=== PATIENT | female | born 1970 | race Caucasian/White ===

== ENCOUNTER → 2019-03-03 | Outpatient (CLI) | payer OTHER, SELFPAY ==
--- NOTE | 2019-03-03 10:28 | BI_ITS ---
MAMMOGRAPHY - BILATERAL DIAGNOSTIC REASON FOR EXAM: Female, 49 years old. History of bilateral breast cysts. No positive family history. PERTINENT HISTORY: Non-contributory. TECHNIQUE: Digital examination. Mediolateral oblique (MLO) and craniocaudad (CC) views of both breasts were obtained. CAD: CAD was performed on this study. COMPARISON: March 09, 2017. FINDINGS: Breast Composition: The breasts are heterogeneously dense, which may obscure small masses. There are multiple, hyperdense, rounded and ovoid masses within the right breast mid zone upper outer quadrant and upper inner quadrant ranging in size from 1 cm to 1.8 cm. There are multiple left breast subareolar and left upper outer quadrant masses ranging in size from 1.9 cm to 3.5 cm. The margins of the bilateral previously described masses appear well circumscribed except where they are obscured by adjacent fibroglandular tissue and most likely represent cysts. Additionally, some of these foci have increased in size and some have decreased in size over the comparison interval and some are new bilaterally. There are no suspicious clustered microcalcifications. BI/DIAG MAMM W/CAD, BILAT IMPRESSION: Multiple abnormal findings/masses bilaterally as above. Although these findings probably represent cysts, characterization with sonography is recommended. ASSESSMENT CATEGORY: BIRADS Category 0: Incomplete. Need additional imaging evaluation. A letter regarding these results will be sent to the patient by the facility within 30 days. FOLLOW UP RECOMMENDATION: Ultrasound Recommended. (I) Approximately 10% of breast cancers are not detected by mammography. A normal mammogram should not delay biopsy of a clinically suspicious abnormality. Electronically Signed: Christophe Gamino MD at 16:12 EDT , Service support ,
--- NOTE | 2019-03-03 10:29 | US_ITS ---
STUDY: ULTRASOUND BREAST - RIGHT REASON FOR EXAM: Female, 49 years old. Abnormal screening mammogram. TECHNIQUE: Axial and longitudinal images of the RIGHT breast were performed with a high resolution ultrasound transducer. COMPARISON: Comparison is made with prior mammogram done earlier in the day as well as prior ultrasound of the breasts dated April 13, 2015 and July 14, 2014. FINDINGS: RIGHT Breast: There is a 1.5 cm x 2.4 cm x 1 cm cyst at the 10:00 position breast at 4 cm from nipple. This also evidence of a 1.3 cm x 1.5 cm x 1 cm well-defined hypoechoic nodule at the 12:00 position of the breast at 4 cm from the nipple. This nodule was previously biopsied. This is essentially unchanged. There is also evidence of an 8 mm x 8 mm x 7 mm solid/cystic nodule at the 10:00 position breast at 6 cm from the nipple. IMPRESSION: 1.5 cm x 2.4 cm x 1 cm cyst at the 10:00 position of the breast at 4 cm from the nipple. Stable nodule at the 12:00 position breast at 4 cm from nipple. ASSESSMENT CATEGORY: BIRADS Category 2: Benign. A letter regarding these results will be sent to the patient by the facility within 30 days. Electronically Signed: Angelito Robles, at 12:54 EDT , Service support , STUDY: ULTRASOUND BREAST - LEFT REASON FOR EXAM: Female, 49 years old. Abnormal screening mammogram. TECHNIQUE: Axial and longitudinal images of the LEFT breast were performed with a high resolution ultrasound transducer. COMPARISON: Comparison is made with prior mammogram done earlier in the day as well as prior ultrasound of the left breast dated April 13, 2015. FINDINGS: LEFT Breast: Multiple cysts are seen. The largest measures 3.5 cm x 3.7 cm x 1.3 cm. This is at the 12:00 position of the breast at 3 cm from nipple. US/Breast Complete Bilateral IMPRESSION: Multiple cysts. ASSESSMENT CATEGORY: BIRADS Category 2: Benign. A letter regarding these results will be sent to the patient by the facility within 30 days. Electronically Signed: Angelito Robles, at 12:55 EDT , Service support ,
== END | disposition home or self-care (01) ==
PROVIDERS: Family Provider Internal Medicine; PCP Internal Medicine; Referring Provider Obstetrics & Gynecology; Visit Provider Obstetrics & Gynecology
DX: N63.20 Unspecified lump in the left breast, unspecified quadrant (principal)
CPT/HCPCS: 76641; 77066

== ENCOUNTER → 2019-09-14 16:55 | Outpatient (CLI) | payer OTHER, SELFPAY ==
--- NOTE | 2019-09-14 15:30 | FLU_PTH ---
PATIENT: COLUMBA MEDEROS LOC: [facility] U#:[id number] AGE/SX: 55/F ROOM: RE09/14/[address]: Dr. Michelle Stout DO : 1970 BED: DIS: SPEC #: [id number] RECD: 09/14/19 16:52 STATUS: DONATO GRIFFIN #: [id number] DARCIE: 09/14/19 15:[address]: Gabby Gray DEPT: CYTOLOGY RECD BY: Rufus Lange ENTERED: 09/15/19 09:46 SP TYPE: Fluid OTHR DR: Dr. Michelle tSout DO Tissues: Right breast, NOS Procedures: Special Stain Group II Surgery Specimen Level IV Cytospin Fluid HEADER OPERATION: Ultrasound guided, right breast cyst aspiration PRE-OP DIAGNOSIS: Right breast cyst TISSUE SUBMITTED: Right breast cyst fluid for cytology DIAGNOSIS CYTOLOGY Right breast cyst fluid for cytology, ultrasound-guided FNA (cytospin and cell block): Consistent with fibrocystic changes. Negative for malignant cells. See cytology study and comment. SJ:rg 09/16/19 COMMENT Correlation with clinical, radiologic findings and appropriate follow up are necessary. CYTOLOGY STUDY Slides are reviewed. The specimen predominantly consists of macrophages and a few clusters of benign ductal cells. CYTOLOGY GROSS Received is 40 ml of cloudy brown fluid labeled with the patient's name and and designated per the requisition as right breast cyst fluid. Submitted for cytology preparation including cell block. /CC:cc 09/15/19 TC:5 CPT: 08029, 49675
== END ==
PROVIDERS: Family Provider Internal Medicine; PCP Internal Medicine; Referring Provider Internal Medicine; Visit Provider Internal Medicine
DX: N60.01 Solitary cyst of right breast (principal)
CPT/HCPCS: 88108; 88305; 88313

== ENCOUNTER → 2019-10-07 14:01 | Outpatient (CLI) | payer OTHER, SELFPAY ==
[2019-10-07 09:08] VITALS: BMI 31.5
== END ==
PROVIDERS: Family Provider Internal Medicine; PCP Internal Medicine; Referring Provider Physician Assistant Surgical; Visit Provider Physician Assistant Surgical
DX: J31.2 Chronic pharyngitis (principal)
CPT/HCPCS: 87070

== ENCOUNTER → 2021-08-20 17:20 | Outpatient (CLI) | payer OTHER, SELFPAY ==
--- NOTE | 2021-08-20 17:06 | BI_ITS ---
MAMMOGRAPHY - BILATERAL SCREENING REASON FOR EXAM: Female, 51 years old. Routine annual screening examination. PERTINENT HISTORY: Non-contributory. TECHNIQUE: Digital bilateral breast ayan (3D mammographic acquisition) in the CC and MLO projections. 2-D mediolateral oblique (MLO) and craniocaudad (CC) views of both breasts were obtained. CAD: Full Field Digital Mammography with Computer Added Detection was performed. COMPARISON: Comparison is made with prior study of 03/03/2019 and 04/13/2015. FINDINGS: Breast Composition: The breasts are extremely dense, which lowers the sensitivity of mammography. Once again, there are multiple bilateral well-defined nodules. These have decreased in size as compared to prior study especially on the left side. A tissue clip marker is seen in the upper midportion of the right breast. A second tissue clip marker is seen in the retroareolar region of the right breast. No other significant abnormalities are identified. BI/SCRN MAMM (CAD)W/AYAN BILAT IMPRESSION: Bilateral well-defined breast nodules. These have decreased in size as compared to prior study. Yearly follow-up mammogram recommended. (A) ASSESSMENT CATEGORY: BIRADS Category 2: Benign. A letter regarding these results will be sent to the patient by the facility within 30 days. Approximately 10% of breast cancers are not detected by mammography. A normal mammogram should not delay biopsy of a clinically suspicious abnormality. [id number] Electronically Signed: Angelito Robles MD at 9:01 EDT , Service support ,
== END ==
PROVIDERS: PCP Internal Medicine
DX: Z12.31 Encounter for screening mammogram for malignant neoplasm of breast (principal)
CPT/HCPCS: 77063; 77067

== ENCOUNTER → 2022-09-04 | Outpatient (CLI) | payer OTHER, SELFPAY ==
--- NOTE | 2022-09-04 16:37 | BI_ITS ---
MAMMOGRAPHY - BILATERAL SCREENING REASON FOR EXAM: Female, 52 years old. Routine annual screening examination. PERTINENT HISTORY: Non-contributory. History of bilateral breast cysts and prior aspirations. TECHNIQUE: Digital bilateral breast ayan (3D mammographic acquisition) in the CC and MLO projections. 2-D mediolateral oblique (MLO) and craniocaudad (CC) views of both breasts were obtained. CAD: Full Field Digital Mammography with Computer Added Detection was performed. COMPARISON: Comparison is made with prior study dated 08/20/2021 and 03/03/2019. FINDINGS: Breast Composition: The breasts are extremely dense, which lowers the sensitivity of mammography. Once again, there are multiple bilateral well-defined nodules in both breasts in keeping with the patient''s history of prior cysts. The previously seen cyst in the upper central portion of the left breast has increased in size. It presently measures 3.2 cm x 3.2 cm. A tissue clip marker is once again seen in the upper midportion of the right breast. A second tissue clip marker is seen in the retroareolar region of the right breast. No other significant abnormalities are identified. BI/SCRN MAMM (CAD)W/AYAN BILAT IMPRESSION: Stable bilateral screening mammogram. Yearly follow-up mammogram recommended. (A) ASSESSMENT CATEGORY: BIRADS Category 2: Benign. A letter regarding these results will be sent to the patient by the facility within 30 days. Approximately 10% of breast cancers are not detected by mammography. A normal mammogram should not delay biopsy of a clinically suspicious abnormality. [id number] Electronically Signed: Angelito Robles MD at 8:56 EDT ,
== END | disposition home or self-care (01) ==
LOC: OPBI 09-05 07:11
PROVIDERS: PCP Internal Medicine
DX: Z12.31 Encounter for screening mammogram for malignant neoplasm of breast (principal)
CPT/HCPCS: 77063; 77067

== ENCOUNTER → 2023-06-03 | Outpatient (CLI) | payer OTHER, SELFPAY ==
--- NOTE | 2023-06-03 09:30 | BI_ITS ---
MAMMOGRAPHY - UNILATERAL DIAGNOSTIC: LEFT BREAST REASON FOR EXAM: Female, 53 years old. 2 week history of left breast lumps. History of prior bilateral cyst aspiration. PERTINENT HISTORY: Personal history of breast cancer. TECHNIQUE: Digital unilateral breast anette (3D mammographic acquisition) in the CC and MLO projections. 2-D mediolateral oblique (MLO) and craniocaudad (CC) views of both breasts were obtained. CAD: Full Field Digital Mammography with Computer Added Detection was performed. COMPARISON: Comparison is made with prior mammogram dated September 04, 2022 and August 20, 2021. FINDINGS: Breast Composition: The breasts are extremely dense, which lowers the sensitivity of mammography. The palpable lump corresponds to a 2.8 cm by 3.2 cm well-defined nodule in the upper outer quadrant of the breast. Smaller nodules are also seen in the upper outer quadrant of the breast. Well-defined nodule in the upper-outer quadrant of the left breast. No other significant abnormalities are identified. BI/DIAG MAMM W/CAD, UNILAT IMPRESSION: Several well-defined nodules are seen in the upper outer quadrant of the right breast. Correlation with ultrasound is recommended. ASSESSMENT CATEGORY: BIRADS Category 0: Incomplete. Need additional imaging evaluation. A letter regarding these results will be sent to the patient by the facility within 30 days. Approximately 10% of breast cancers are not detected by mammography. A normal mammogram should not delay biopsy of a clinically suspicious abnormality. Electronically Signed: Angelito Robles MD at 11:06 EDT ,
--- NOTE | 2023-06-03 09:31 | US_ITS ---
STUDY: ULTRASOUND BREAST - LEFT REASON FOR EXAM: Female, 53 years old. Abnormal screening mammogram. Palpable lump in the left breast. TECHNIQUE: Axial and longitudinal images of the LEFT breast were performed with a high resolution ultrasound transducer. # OF IMAGES: [id number] COMPARISON: Comparison is made with prior mammogram done earlier in the day. FINDINGS: LEFT Breast: The upper outer quadrant of the left breast was examined with ultrasound. Multiple simple cysts are seen. The largest cyst measures 3.4 cm x 2.3 cm x 2.5 cm. US/Breast Limited Unilateral IMPRESSION: Multiple simple cysts are seen in the upper outer quadrant of the left breast. The largest cyst measures 3.4 cm x 2.5 cm x 2.3 cm. This corresponds to the mammographic abnormality. ASSESSMENT CATEGORY: BIRADS Category 2: Benign. A letter regarding these results will be sent to the patient by the facility within 30 days. Electronically Signed: Angelito Robles MD at 9:00 EDT ,
== END | disposition home or self-care (01) ==
LOC: OPBI 09:27
DX: N63.25 Unspecified lump in the left breast, overlapping quadrants (principal)
CPT/HCPCS: 76642; 77061; 77065; G0279

== ENCOUNTER → 2025-02-20 | Outpatient (CLI) | payer OTHER, SELFPAY ==
--- NOTE | 2025-02-20 08:30 | BI_ITS ---
EXAM: SCRN MAMM (CAD)W/AYAN BILAT DATE: 02/20/2025 CLINICAL HISTORY: F, Age 55 y/o , SCREENING BREAST CANCER RISK ASSESSMENT: Has not been calculated. TECHNIQUE: Bilateral screening digital breast tomosynthesis with 2D and 3D images. Computer aided detection. COMPARISON: Prior exam(s) dated 06/03/2023 and 09/04/2022. FINDINGS: TISSUE DENSITY: The breast tissue is heterogenously dense, which may obscure small masses. Bilateral Breast Mammographic Findings: There are no suspicious masses, suspicious clusters of microcalcifications, architectural distortion or secondary signs of malignancy identified in either breast. There are stable partially obscured isodense masses in both breasts. The largest mass seen previously in the superior outer quadrant of the left breast is significantly smaller on today's study. Benign-appearing round microcalcifications and macrocalcifications are seen in both breasts. A radiopaque clip is seen in the superior medial aspect of the right breast. The mass at this location appears stable. BI/SCRN MAMM (CAD)W/AYAN BILAT IMPRESSION: OVERALL FINAL ASSESSMENT: BIRADS 2 BENIGN FINDING RECOMMENDATION: Routine annual follow-up in 1 Year A letter with findings and recommendations will be mailed to the patient. Reading Location: [id number]
== END | disposition home or self-care (01) ==
PROVIDERS: Referring Provider Nurse Practitioner Gerontology; Visit Provider Nurse Practitioner Gerontology
DX: Z12.31 Encounter for screening mammogram for malignant neoplasm of breast (principal)
CPT/HCPCS: 77063; 77067